=== PATIENT | female | born 1990 | race Two or more races ===

== ENCOUNTER 2021-09-22 05:30 | Day surgery (SDC) | payer OTHER ==
[~2021-09-22 05:30] MED LIST: CLEOCIN HCL300 MG PO; PRENATAL CAPLE1 EACH PO; VISTARIL50 MG PO
== END 2021-09-22 13:55 | disposition home or self-care (01) ==
LOC: CIR.AMB 05:30
PROVIDERS: ATTEND Obstetrics & Gynecology
DX: N80.0 Endometriosis of uterus (principal); Z88.6 Allergy status to analgesic agent; Z91.041 Radiographic dye allergy status; J45.909 Unspecified asthma, uncomplicated; Z86.16 Personal history of COVID-19; Z20.822 Contact with and (suspected) exposure to COVID-19